=== PATIENT | female | born 1960 | race Hispanic/Latino ===

== ENCOUNTER 2018-05-08 18:35 | Emergency (ER) | payer OTHER ==
[2018-05-08] MEDS ORDERED: MORPHINE SULFATE 5 MG/ML VIAL ONE (19:19)
[2018-05-08] MEDS ORDERED: ONDANSETRON ODT 4 MG TAB ONE (19:19)
== END 2018-05-08 20:03 | disposition home or self-care (01) ==
LOC: EDH 18:35
DX: S20.211A Contusion of right front wall of thorax, initial encounter (principal); I10 Essential (primary) hypertension; W01.198A Fall on same level from slipping, tripping and stumbling with subsequent striking against other object, initial encounter; Y93.01 Activity, walking, marching and hiking; Y92.89 Other specified places as the place of occurrence of the external cause; Y99.8 Other external cause status
CPT/HCPCS: 71101; 96372; 99283; J2270

== ENCOUNTER → 2020-01-21 | Outpatient (CLI) | payer OTHER | END | disposition home or self-care (01) | LOC: OIH 10:00 | PROVIDERS: ATTEND Internal Medicine Cardiovascular Disease | DX: Z13.6 Encounter for screening for cardiovascular disorders (principal) | CPT/HCPCS: 75571 ==

== ENCOUNTER 2021-11-05 11:15 | Inpatient (IN) | payer OTHER ==
[~2021-11-05] VITALS: Ht 162.6 cm; Wt 142.4 kg
[2021-11-05] MEDS ORDERED: LACTATED RINGERS 1000ML 1,000 ML IV ONE (11:36)
[2021-11-05 12:07] LABS: BASOPHILS % (AUTO) 0.5 % (0.0-5.0); EOSINOPHILS % (AUTO) 2.1 % (0.0-8.0); LYMPHOCYTES % (AUTO) 26.8 % (21.0-51.0); MEAN CORPUSCULAR HEMOGLOBIN 29.3 pg (27.0-33.0); MEAN CORPUSCULAR HGB CONC 32.2 g/dL (32.0-36.0); MEAN CORPUSCULAR VOLUME 90.9 fL (79-99); MONOCYTES % (AUTO) 21.8 % (3.0-13.0); NEUTROPHILS % (AUTO) 47.8 % (40.0-77.0); NUCLEATED RED BLOOD CELLS 0.6 % (0.0-0.19); PLATELET COUNT (AUTO) 42 K/uL (130-400); RED BLOOD CELL COUNT(AUTO) 2.97 MIL/uL (4.00-5.50); RED CELL DISTRIBUTION WIDTH 19.1 % (11.0-15.5); WHITE BLOOD COUNT (AUTO) 6.2 K/uL (4.8-10.8)
[2021-11-05 12:24] LABS: PLATELET MORPHOLOGY COMMENT DECREASED
[2021-11-05 12:41] LABS: POTASSIUM 4.2 mmol/L (3.5-5.1)
[2021-11-05 12:44] LABS: INR 1.1 (0.85-1.15); PROTHROMBIN TIME 11.9 SEC (9.6-11.6)
[2021-11-05 12:46] LABS: ALBUMIN 2.5 g/dL (3.5-5.0); PARTIAL THROMBOPLASTIN TIME 28.6 SEC (26.3-35.5); TOTAL PROTEIN, SERUM 6.4 g/dL (6.0-8.3)
[2021-11-05 13:24] LABS: CRP QUANTITATIVE 59.6 mg/L (0.00-9.0); MAGNESIUM 1.6 mg/dL (1.80-2.40)
[2021-11-05 15:00] LABS: BILIRUBIN,URINE NEGATIVE (NEGATIVE); COLOR,URINE YELLOW (YELLOW); GLUCOSE, URINE (UA) 250 mg/dL (NEGATIVE); KETONES,URINE NEGATIVE (NEGATIVE); LEUKOCYTE ESTERASE ,URINE SMALL Leu/uL (NEGATIVE); NITRATE,URINE POSITIVE (NEGATIVE); OCCULT BLOOD,URINE MODERATE (NEGATIVE); PROTEIN,URINE NEGATIVE (NEGATIVE)
[2021-11-05] MEDS ORDERED: HYDROXYZINE 25 MG TABLET PO ONE (15:00)
[2021-11-05 15:06] LABS: APPEARANCE,URINE SLIGHTLY CLOUDY (CLEAR)
[2021-11-05 15:20] LABS: BACTERIA,URINE Moderate /HPF (None Seen); MUCUS,URINE Few LPF (None Seen); SQUAMOUS EPITHELIAL CELL,UR Few /HPF (0-2)
[2021-11-05 15:21] LABS: URIC ACID CRYSTALS,URINE Moderate /LPF (None Seen)
[2021-11-05] MEDS ORDERED: CEFTRIAXONE 1G VIAL IVP ONE (15:30)
[2021-11-05] MEDS: 0.9%NACL 1000ML 1,000 ML IV SCH ×2 (16:05→23:25)
[2021-11-05] MEDS: FAMOTIDINE 20MG TAB PO SCH (16:18)
[2021-11-05] MEDS ORDERED: ONDANSETRON 4MG INJ IV PRN (16:30)
[2021-11-05] MEDS: CEFTRIAXONE 2GM VIAL IVP SCH (16:30)
[2021-11-05] MEDS ORDERED: LACTULOSE 20 GM/30 ML UDCUP PO PRN (16:30)
[2021-11-05] MEDS ORDERED: ACETAMINOPHEN 325 MG TAB PO PRN (16:30)
[2021-11-05] MEDS ORDERED: ASPI-1197 PO (16:44)
[2021-11-05] MEDS ORDERED: EMPA1TAB PO (16:44)
[2021-11-05] MEDS ORDERED: NYST1POW9 MC (16:44)
[2021-11-05] MEDS ORDERED: INSU3INS9 SQ (16:44)
[2021-11-05] MEDS ORDERED: METO-408 PO (16:44)
[2021-11-05] MEDS ORDERED: PREMC VG (16:44)
[2021-11-05] MEDS ORDERED: CLOT15C TP (16:44)
[2021-11-05] MEDS ORDERED: LOSA100T58 PO (16:44)
[2021-11-05] MEDS ORDERED: ATOR40TA71 PO (16:44)
[2021-11-05] MEDS ORDERED: BUDE10.2 IH (16:52)
[2021-11-05] MEDS ORDERED: APIX2.5T PO (16:52)
[2021-11-05] MEDS ORDERED: CITA-106 PO (16:52)
[2021-11-05] MEDS ORDERED: METF-444 PO (16:52)
[2021-11-05 18:30] LABS: HEMOGLOBIN A1C 6.1 % (4.0-6.0)
[2021-11-05] MEDS ORDERED: MAGNESIUM 2GM PREMIX 50ML 50 ML IV SCH (18:30)
[2021-11-05 22:19] LABS: HEMATOCRIT 48.7 % (36-48)
[2021-11-05 22:39] LABS: CREATININE 4.1 mg/dL (0.5-1.5); POTASSIUM 4.5 mmol/L (3.5-5.1)
[2021-11-06] VITALS (15 sets, daily range): BP systolic 83–128; BP diastolic 34–75
[2021-11-06] MEDS: NYSTATIN 15 GM POWDER TP SCH ×3 (01:30→21:00)
[2021-11-06] MEDS: 0.9%NACL 1000ML 1,000 ML IV SCH ×3 (04:20→14:00)
[2021-11-06 06:01] LABS: HEMATOCRIT 22.9 % (36-48); MEAN CORPUSCULAR HEMOGLOBIN 29.2 pg (27.0-33.0); MEAN CORPUSCULAR HGB CONC 31.9 g/dL (32.0-36.0); MEAN CORPUSCULAR VOLUME 91.6 fL (79-99); NUCLEATED RED BLOOD CELLS 0.6 % (0.0-0.19); RED BLOOD CELL COUNT(AUTO) 2.5 MIL/uL (4.00-5.50); RED CELL DISTRIBUTION WIDTH 19.4 % (11.0-15.5); WHITE BLOOD COUNT (AUTO) 6.4 K/uL (4.8-10.8)
[2021-11-06 06:10] LABS: CREATININE 1.5 mg/dL (0.5-1.5); POTASSIUM 4.1 mmol/L (3.5-5.1)
[2021-11-06] MEDS: FAMOTIDINE 20MG TAB PO SCH (08:48)
[2021-11-06] MEDS: Vitamin B Complex/Vit C/Folic Acid PO SCH (08:48)
[2021-11-06] MEDS ORDERED: ENOXAPARIN SODIUM 40 MG/0.4 ML SYRINGE SQ SCH (09:00)
[2021-11-06] MEDS: MIDODRINE HCL 5 MG TABLET PO SCH ×3 (10:39→21:43)
[2021-11-06] MEDS: PANTOPRAZOLE 40 MG/VIAL IVP SCH (11:37)
[2021-11-06] MEDS: ZOSYN 3.375GM +NS 50ML IV SCH (13:32)
[2021-11-06] MEDS: CEFTRIAXONE 2GM VIAL IVP SCH (15:36)
[2021-11-06] MEDS: ACETAMINOPHEN 325 MG TAB PO PRN (15:36)
[2021-11-06 16:46] LABS: HEMATOCRIT 23.8 % (36-48); MEAN CORPUSCULAR HEMOGLOBIN 29.3 pg (27.0-33.0); MEAN CORPUSCULAR HGB CONC 31.5 g/dL (32.0-36.0); NUCLEATED RED BLOOD CELLS 0.8 % (0.0-0.19); PLATELET COUNT (AUTO) 36 K/uL (130-400); RED BLOOD CELL COUNT(AUTO) 2.56 MIL/uL (4.00-5.50); RED CELL DISTRIBUTION WIDTH 19.6 % (11.0-15.5); WHITE BLOOD COUNT (AUTO) 6.6 K/uL (4.8-10.8)
[2021-11-06] MEDS ORDERED: DIPHENHYDRAMINE HCL 25 MG CAPSULE PO ONE (17:00)
[2021-11-06 17:49] LABS: BAND NEUTROPHILS % (MANUAL) 1 % (0-2); LYMPHOCYTES % (MANUAL) 38 % (22-44); MAN.DIFF COMMENT-IMPRESSION MANUAL DIFFERENTIAL; MONOCYTES % (MANUAL) 20 % (2-9); SEGMENTED NEUTROPHILS % 41 % (40-70)
[2021-11-06 17:50] LABS: PLATELET MORPHOLOGY COMMENT MARKED DECREASE
[2021-11-07] MEDS: PANTOPRAZOLE 40 MG/VIAL IVP SCH ×3 (01:18→23:07)
[2021-11-07] MEDS: ZOSYN 3.375GM +NS 50ML IV SCH ×4 (01:19→20:49)
[2021-11-07] MEDS: 0.9%NACL 1000ML 1,000 ML IV SCH ×2 (01:21→17:33)
[2021-11-07 03:40] VITALS: BP 120/65
[2021-11-07 04:10] LABS: BASOPHILS % (AUTO) 0.4 % (0.0-5.0); EOSINOPHILS % (AUTO) 2.2 % (0.0-8.0); HEMATOCRIT 23.8 % (36-48); LYMPHOCYTES % (AUTO) 31.8 % (21.0-51.0); MEAN CORPUSCULAR HEMOGLOBIN 28.5 pg (27.0-33.0); MEAN CORPUSCULAR HGB CONC 31.5 g/dL (32.0-36.0); MEAN CORPUSCULAR VOLUME 90.5 fL (79-99); MONOCYTES % (AUTO) 24.9 % (3.0-13.0); NUCLEATED RED BLOOD CELLS 0.7 % (0.0-0.19); PLATELET COUNT (AUTO) 47 K/uL (130-400); RED BLOOD CELL COUNT(AUTO) 2.63 MIL/uL (4.00-5.50); RED CELL DISTRIBUTION WIDTH 19.8 % (11.0-15.5)
[2021-11-07 04:26] LABS: ALBUMIN 2.1 g/dL (3.5-5.0); CREATININE 1.6 mg/dL (0.5-1.5); PHOSPHORUS 3.8 mg/dL (2.5-4.9); TOTAL PROTEIN, SERUM 5.5 g/dL (6.0-8.3)
[2021-11-07] MEDS: Vitamin B Complex/Vit C/Folic Acid PO SCH (07:51)
[2021-11-07] MEDS: DIPHENHYDRAMINE HCL 25 MG CAPSULE PO PRN ×2 (07:51→18:04)
[2021-11-07] MEDS: FAMOTIDINE 20MG TAB PO SCH (07:51)
[2021-11-07] MEDS: NYSTATIN 15 GM POWDER TP SCH ×2 (07:52→20:49)
[2021-11-07] MEDS: MIDODRINE HCL 5 MG TABLET PO SCH ×4 (07:57→20:49)
[2021-11-07 08:00] VITALS: BP 108/66
[2021-11-07] MEDS ORDERED: DIPHENHYDRAMINE 2% CREAM 30 GM TP PRN (10:00)
[2021-11-07 11:18] VITALS: BP 127/63
[2021-11-07] MEDS: ACETAMINOPHEN 325 MG TAB PO PRN (11:26)
[2021-11-07 14:28] LABS: HEMATOCRIT 26.4 % (36-48)
[2021-11-07 14:56] LABS: % IRON SATURATION 19.1 % (22-44)
[2021-11-07 15:33] VITALS: BP 111/58
[2021-11-07 20:00] VITALS: BP 113/62
[2021-11-07 22:30] LABS: HEMATOCRIT 27.8 % (36-48)
[2021-11-07 23:33] VITALS: BP 111/62
[2021-11-08] MEDS: 0.9%NACL 1000ML 1,000 ML IV SCH (03:04)
[2021-11-08 03:39] LABS: HEMATOCRIT 25.9 % (36-48); MEAN CORPUSCULAR HEMOGLOBIN 28.7 pg (27.0-33.0); MEAN CORPUSCULAR HGB CONC 31.7 g/dL (32.0-36.0); MEAN CORPUSCULAR VOLUME 90.6 fL (79-99); NUCLEATED RED BLOOD CELLS 0.9 % (0.0-0.19); RED BLOOD CELL COUNT(AUTO) 2.86 MIL/uL (4.00-5.50); RED CELL DISTRIBUTION WIDTH 19.9 % (11.0-15.5); WHITE BLOOD COUNT (AUTO) 6.7 K/uL (4.8-10.8)
[2021-11-08 04:02] VITALS: BP 113/59
[2021-11-08 04:02] LABS: CREATININE 1.8 mg/dL (0.5-1.5); POTASSIUM 3.7 mmol/L (3.5-5.1); TOTAL PROTEIN, SERUM 5.4 g/dL (6.0-8.3)
[2021-11-08] MEDS: ZOSYN 3.375GM +NS 50ML IV SCH ×2 (04:49→10:53)
[2021-11-08] MEDS: Vitamin B Complex/Vit C/Folic Acid PO SCH (07:55)
[2021-11-08] MEDS: FAMOTIDINE 20MG TAB PO SCH (07:55)
[2021-11-08] MEDS: DIPHENHYDRAMINE HCL 25 MG CAPSULE PO PRN (07:55)
[2021-11-08] MEDS: NYSTATIN 15 GM POWDER TP SCH (07:55)
[2021-11-08 08:00] VITALS: BP 95/54
[2021-11-08] MEDS ORDERED: IRON SUCROSE COMPLEX 200 MG in 0.9%NACL 50ML 50 ML IV SCH (09:00)
[2021-11-08] MEDS ORDERED: IRON SUCROSE COMPLEX 100 MG/5 ML VIAL IVP SCH (09:00)
[2021-11-08] MEDS: PANTOPRAZOLE 40 MG/VIAL IVP SCH (10:52)
[2021-11-08] MEDS: MIDODRINE HCL 5 MG TABLET PO SCH ×3 (10:52→14:00)
[2021-11-08 12:00] VITALS: BP 133/54
[2021-11-08 16:00] VITALS: BP 92/50
[2021-11-09] MEDS ORDERED: LEVOFLOXACIN 500 MG TABLET PO SCH ×2 (09:00)
== END 2021-11-08 18:48 | disposition left against medical advice (07) | DRG 377 ==
LOC: EDH 11:15 → EDHIP 16:04 → OBSVTOIN 16:04 → EEVIPCON 16:04 → INTOOBSV 16:04 → 3DH 23:57 → 2AH 11-06 15:19
PROVIDERS: ADMIT Hospitalist; ATTEND Hospitalist
PROC: 30233R1 Transfusion of Nonautologous Platelets into Peripheral Vein, Percutaneous Approach (ICD-10-PCS; principal; 2021-11-06)
PROC: 30233N1 Transfusion of Nonautologous Red Blood Cells into Peripheral Vein, Percutaneous Approach (ICD-10-PCS; 2021-11-07)
DX: K92.2 Gastrointestinal hemorrhage, unspecified (principal); J96.90 Respiratory failure, unspecified, unspecified whether with hypoxia or hypercapnia; R57.1 Hypovolemic shock; N17.9 Acute kidney failure, unspecified; Z68.43 Body mass index [BMI] 50.0-59.9, adult; N39.0 Urinary tract infection, site not specified; D62 Acute posthemorrhagic anemia; G47.33 Obstructive sleep apnea (adult) (pediatric); I95.1 Orthostatic hypotension; B96.20 Unspecified Escherichia coli [E. coli] as the cause of diseases classified elsewhere; D50.9 Iron deficiency anemia, unspecified; D69.59 Other secondary thrombocytopenia; E66.01 Morbid (severe) obesity due to excess calories; E78.00 Pure hypercholesterolemia, unspecified; I12.9 Hypertensive chronic kidney disease with stage 1 through stage 4 chronic kidney disease, or unspecified chronic kidney disease; N18.9 Chronic kidney disease, unspecified; Z90.710 Acquired absence of both cervix and uterus
CPT/HCPCS: 36415; 71045; 74176; 76830; 80048; 80053; 81001; 82270; 82607; 82728; 82746; 82948; 82955; 83036; 83540; 83550; 83605; 83735; 83883; 84100; 84145; 84443; 85014; 85018; 85025; 85027; 85610; 85730; 86140; 86334; 86850; 86880; 86900; 86901; 86923; 87077; 87088; 87186; 93005; C9113; G0378; J0696; J1756; J2543; J3475; J7030; J7120; P9016; P9034; Q0163